=== PATIENT | female | born 1955 | race Caucasian/White ===

== ENCOUNTER 2016-06-11 10:50 | Emergency (ER) | payer OTHER ==
[~2016-06-11] VITALS: Ht 162.6 cm; Wt 60.0 kg
--- NOTE | 2016-06-11 10:53 | ED.REPORT ---
HPI-Extremity Problem Upper Date of Service Jun 11, 2016 ED Provider: Dr. Hernandez Pt is a 60 y/o female w/ a hx of osteoporosis, HTN, presenting to the ED with family c/o right upper arm pain secondary to ground level fall which occurred last night. The patient was at home, bent over, became dizzy, and fell onto her right shoulder onto a wood floor. She took some Ibuprofen last night and this morning with no relief. Pt denies numbness or weakness of the arm, syncope, PRESTON, focal numbness or weakness, any other site of injury, SOB, CP, nausea, vomiting , abdominal pain. She began taking 10 mg Lisinopril 2-3 weeks ago. This is the first time she has fallen like this. Nursing Notes Stated Complaint: RIGHT ARM INJURY Nursing Notes Reviewed: Yes Allergies: Coded Allergies: No Known Allergies (Verified , 06/11/16) Scheduled PRN oxyCODONE-Acetaminophen 10-325 mg (oxyCODONE-Acetaminophen 10-325 mg) 1 Each Tablet 1 TABLET PO Q4H PRN PRN For Pain General Time Seen by MD: 10:53 Chief Complaint Arm injury right Hx Obtained From: Patient Arrived By: Walk-in Onset Occurred: 9 - 12 hours ago Symptom Duration: Since onset Location: : Arm right Quality: Painful Severity: Current: Moderate Severity: Maximum: Severe Exacerbated by: Range of motion Recent Healthcare: Recent doctor visit Similar Sx Previous: No Past Medical History Past Medical History Osteoporosis Non-hodgkins lymphoma in remission since 2006 Hypothyroid Hypertension Past Surgical History Thyroidectomy Family History Noncontributory Smoking History Current Every Day Smoker Social History Other Social History: Good social support, Local resident Occupation Works at [employer] Ambulatory Status Independent Review of Systems Constitutional: Denies: Chills, Fever Musculoskeletal: Reports: Extremity pain, Extremity swelling Skin: Denies Diaphoresis, Denies Rash Neurologic: Reports: Dizziness, Denies: Change LOC, Confusion, Focal weakness, Headache, Numbness, Slurred speech, Syncope, Unable to speak, Vision change, Weakness Complete sys rev & neg: except as marked. Respiratory: Denies: Dyspnea on exertion, Non-productive cough, Shortness of breath Cardiovascular: Denies: Chest pain, Dyspnea on exertion GI: Denies: Abdominal pain, Diarrhea, Nausea, Vomiting Physical Exam Initial Vital Signs Vital Signs (First) Date Time Temp Pulse Resp B/P Pulse Ox O2 Delivery O2 Flow Rate FiO2 06/11/16 11:00 36.5 92 18 168/88 100 06/11/16 12:23 Room Air Initial VS: Reviewed Head / Eyes: Atraumatic, Normocephalic, PERRL ENT: Mucous membranes moist, Conjunctiva normal, No scleral icterus Neck: Supple, Non-tender, Full range of motion Respiratory: Breath sounds normal, Clear to auscultation, No respiratory distress Cardiovascular: Regular rate & rhythm, Heart sounds normal, Intact distal pulses Abdomen / GI: Soft, Non-tender, No guarding, No rebound, No distention Lower Extremities: Vascular intact, Neuro intact, No swelling, No tenderness Skin: Warm, Dry, No cyanosis Psychiatric: Mood/affect normal, Behavior normal, Normal thought content General/Constitutional: Awake, Alert, No acute distress, Cooperative, Not toxic appearing Appearance / Presentation: Positive: In pain, Uncomfortable Upper Extremity / MS: No snuffbox tenderness, Neurologic intact, Vascular intact, No compartment syndrome, No circumferential injury, No clubbing/cyanosis RUE: Bruising over the bicep. Significant swelling present. Tenderness about the mid shaft of the humerus LUE normal Neurologic: Oriented X3, Speech NL, No motor deficits, No sensory deficits, CN II - XII intact, Cerebellar NL, Memory NL Interpretation & Diagnostics Lab Results Interpretation Result Diagram: 06/11/16 1127 06/11/16 1127 Test 06/11/16 11:27 White Blood Count 8.8th/mm3 (3.8-10.1) Red Blood Count 3.33mil/mm3 (3.90-5.20) Hemoglobin 10.4g/dL (12.0-15.6) Hematocrit 29.4% (35.0-46.0) Mean Corpuscular Volume 88.3fL (81-100) Mean Corpuscular Hemoglobin 31.2pg (27.0-35.0) Mean Corpuscular Hemoglobin Concent 35.4% (32.0-37.0) Red Cell Distribution Width 11.5% (12.3-15.4) Platelet Count 310bil/L (150-400) Neutrophils (%) (Auto) 71.6% (40-74) Lymphocytes (%) (Auto) 20.0% (14-46) Monocytes (%) (Auto) 8.1% (4-12) Eosinophils (%) (Auto) 0.1% (0-5) Basophils (%) (Auto) 0.1% (0-3) Prothrombin Time 9.6sec (8.1-12.5) Prothromb Time International Ratio 0.90ratio Activated Partial Thromboplast Time 27.1sec (22.8-33.0) Sodium Level 123mEq/L (134-144) Potassium Level 4.5mEq/L (3.5-5.2) Chloride Level 85mEq/L (97-108) Carbon Dioxide Level 22mmol/L (18-29) Blood Urea Nitrogen 10mg/dL (6-24) Creatinine 0.59mg/dL (0.57-1.00) Estimat Glomerular Filtration Rate 150mL/min (>59) Glucose Level 134mg/dL (60-99) Calcium Level 7.9mg/dL (8.5-10.1) Magnesium Level 1.6mg/dL (1.6-2.6) Total Bilirubin 0.5mg/dL (0.0-1.2) Aspartate Amino Transf (AST/SGOT) 16U/L (0-50) Alanine Aminotransferase (ALT/SGPT) 9U/L (0-32) Alkaline Phosphatase 51U/L (25-150) Troponin T 0.010ug/L (0.0-0.011) Total Protein 7.9g/dL (6.4-8.4) Albumin 3.9g/dL (3.4-5.0) ECG Interpretation Time: 11:38 Interpreted by: ED physician Normal ECG Interpretation: Normal ECG w/ rate of... (76), Normal rate, Normal sinus rhythm, No acute ischemic changes, Normal QRS, Normal axis, Normal intervals, Adequate tracing X-Ray Chest Interpretation Chest Xray Interpretation: IMPRESSION: Acute disease is not seen in a supine portable chest. Dictated by: Lencho Padilla M.D. on 06/11/2016 at 11:33 Approved by: Lencho Padilla M.D. on 06/11/2016 at 11:33 View: Portable, 1 view Interpretation / Wet Read by: Interpret - Radiologist X-Ray Interpretation Xray Interpretation: IMPRESSION: Fracture of the neck of the right humerus with displacement of the shaft anteriorly the thickness of the shaft and medially half the thickness of the shaft. Dictated by: Lencho Padilla M.D. on 06/11/2016 at 11:31 Approved by: Lencho Padilla M.D. on 06/11/2016 at 11:32 Study Performed: 2 view X-Ray Ordered: Shoulder right Interpretation / Wet Read by: Interpret - Radiologist Xray Interpretation: IMPRESSION: No abnormality seen in the distal right humerus. Proximally there is a humeral neck fracture. Dictated by: Lencho Padilla M.D. on 06/11/2016 at 11:32 Approved by: Lencho Padilla M.D. on 06/11/2016 at 11:33 Study Performed: 2 views X-Ray Ordered: Humerus right Interpretation / Wet Read by: Interpret - Radiologist Re-Eval/Medical Decision Med Decision/Clinical Course 60-year-old female with a history of non-Hodgkin's lymphoma, hypothyroidism, tobacco dependence, osteoporosis and recently diagnosed hypertension presents with left arm pain and a humeral neck fracture noted after a fall last evening that was preceded by a dizzy episode. Patient notes she has been feeling somewhat weak and dizzy over the past several days. Interestingly she was started on lisinopril 10 mg daily 2 weeks ago by her PCP for her blood pressure and at that time her sodium was 139. Today it is 123. Her blood pressure is not low, her EKG is normal as well as her chest x-ray and her telemetry monitoring has been normal while in the ER. I do not suspect that her dizzy episodes are cardiac related. She is euvolemic on exam, I do not suspect dehydration. By history these episodes are not vertiginous. I believe that hyponatremia is the cause of her fall and dizziness. There are no signs of renal failure, multiple myeloma, hyperglycemia, or alcohol that could have caused this. Her thyroid was last checked 1 month ago and was normal. Although in my experience lisinopril is less likely to cause hyponatremia, it is the only thing that has changed in the past 2 weeks so I recommended the patient discontinue this medication and discuss a different blood pressure medication with her PCP at follow-up next week. I did recommend an overnight admission for treatment of her hyponatremia, and to make sure that the numbers improved by discontinuing lisinopril and her symptoms resolved. Patient was adamant that she felt fine and did not want to be admitted. Given that the likely cause was identified and corrected I was comfortable with her going home , with instructions to return if she worsens in any way. For the humeral neck fracture her pain was controlled with Dilaudid here and she is discharged with Percocet Rx. I notified Dr. Allan Bai with orthopedics about the fracture to help arrange a follow-up. Patient will call on Monday morning. She was placed in a sling and precautions given. There were no signs of neurologic or vascular injury on exam of the distal extremity. Patient understands and is in agreement with the plan Re-Evaluation/Progress #1: Time of Eval: 11:43 Patient Status: Moderate relief, Pain improved Re-Evaluation/Progress Note: Informed pt of imaging findings and likely necessary surgical intervention. Re-Evaluation/Progress #2: Time of Eval: 14:22 Re-Evaluation/Progress Note: Pt rechecked. Discussed admit vs discharge. She would like to be discharged. Informed pt of plan for treatment. Pt understands and agrees with plan for treatment. F/U instructions and RTER warnings given. All questions addressed. Consultation : Referral / Consult Name: Allan Bai MD Consulted With: Orthopedic Call Returned at: 11:30 Circuit Tester: Agrees with eval, Agrees with plan Note: Recommends outpatient treatment of the fracture Counseled Regarding: Diagnosis, Lab results, Need for follow-up, When/why to return to ED Discharge & Departure Impression: Primary Impression: Fracture of head of right humerus Encounter type: initial encounter Fracture type: closed Qualified Code: S42.201A - Unspecified fracture of upper end of right humerus, initial encounter for closed fracture Additional Impressions: Fall from ground level Dizziness Hyponatremia Adverse effects of medication Encounter type: initial encounter Qualified Code: T88.7XXA - Unspecified adverse effect of drug or medicament, initial encounter Anemia Anemia type: unspecified type Qualified Code: D64.9 - Anemia, unspecified Disposition: Home Discharge Condition All VS Reviewed: Yes Condition: Stable Patient Instructions: Arm Fracture in Adults (ED), Hyponatremia (ED) Additional Instructions: Your sodium is quite low at 123 today. This is likely causing your dizziness. Although lisinopril does not frequently cause this is the only thing that has recently changed so I recommend that you stop it until your follow up on Monday with your PCP The fall caused a right upper arm fracture. Keep the splint on until you are seen by the referred orthopedic surgeon, Dr. Bai. Call her office's number to schedule an appointment. You have been prescribed Percocet and I recommend that you take a stool softener with this medication. Return to the emergency department if you experience more falls, dizziness, lightheadedness, passing out, vomiting, chest pain, shortness of breath, or for other concerning symptoms. Referrals: Belkis Jasso (PCP) Allan Bai MD Attestation Portions of this note were transcribed by Gerson Bennett. I, Dr. Hernandez personally performed the history, physical exam and medical decision-making; I reviewed and confirmed the accuracy of the information in the transcribed note. Signed by Shea Echeverria, 06/11/16 - 2027 copies to: Belkis Jasso Gary R DO Jun 11, 2016 10:53 GERSON BENNETT Jun 11, 2016 11:01
[2016-06-11 11:00] VITALS: BP 168/88; PULSE 92; RESP 18; O2SAT 100
[2016-06-11] MEDS ORDERED: Ondansetron 2 mg/mL 2 mL Inj IVPUSH PRN (11:10)
--- NOTE | 2016-06-11 11:33 | DRSVH ---
PROCEDURE: X-RAY RIGHT SHOULDER, MINIMUM TWO VIEWS ([id number]) INDICATIONS: fall, r shoulder pain TECHNIQUE: 2 views of the shoulder were acquired. COMPARISON: None. FINDINGS: Bones: There is an acute fracture of the neck of the right humerus with displacement of the shaft med ially half the thickness of the shaft and anteriorly nearly the complete thickness of the shaft. The head remains in the glenoid fossa. Soft tissues: No suspicious soft tissue calcifications. IMPRESSION: Fracture of the neck of the right humerus with displacement of the shaft anteriorly the t hickness of the shaft and medially half the thickness of the shaft. Dictated by: Lencho Padilla M.D. on 06/11/2016 at 11:31 Approved by: Lencho Padilla M.D. on 06/11/2016 at 11:32
--- NOTE | 2016-06-11 11:34 | DRSVH ---
PROCEDURE: X-RAY RIGHT HUMERUS, MINIMUM TWO VIEWS ([id number]) INDICATIONS: fall, r arm pain TECHNIQUE: 2 views of the humerus were acquired. COMPARISON: None. FINDINGS: Bones: Fracture of the humeral neck is seen on the margin of one of the films and better seen on the shoulder x-rays. No fracture of the distal humerus is seen. No abnormality is seen in these oblique f ilms of the elbow. No suspicious bony lesions. Soft tissues: No suspicious soft tissue calcifications. IMPRESSION: No abnormality seen in the distal right humerus. Proximally there is a humeral neck fract ure. Dictated by: Lencho Padilla M.D. on 06/11/2016 at 11:32 Approved by: Lencho Padilla M.D. on 06/11/2016 at 11:33
--- NOTE | 2016-06-11 11:35 | DRSVH ---
PROCEDURE: X-RAY CHEST ONE VIEW, PORTABLE ([id number]) INDICATIONS: presyncope TECHNIQUE: One view of the chest was acquired. COMPARISON: None. FINDINGS: Surgical changes and devices: Surgical clips are seen in the region of the thyroid or trachea. Lungs and pleura: No pleural effusions or pneumothorax. Lungs are clear. Mediastinum: Mediastinal contours appear normal. Heart size is normal. Bones and chest wall: No suspicious bony lesions. Overlying soft tissues appear unremarkable. IMPRESSION: Acute disease is not seen in a supine portable chest. Dictated by: Lencho Padilla M.D. on 06/11/2016 at 11:33 Approved by: Lencho Padilla M.D. on 06/11/2016 at 11:33
[2016-06-11] MEDS: HYDROmorphone 1 mg/mL Inj IVPUSH PRN ×2 (11:40→12:22)
[2016-06-11 11:57] LABS: BASOPHILS % (AUTO) 0.1 % (0-3); EOSINOPHILS % (AUTO) 0.1 % (0-5); MONOCYTES % (AUTO) 8.1 % (4-12); Mean Corpuscular Hemoglobin 31.2 pg (27.0-35.0); Mean Corpuscular Volume 88.3 fL (81-100); NEUTROPHILS % (AUTO) 71.6 % (40-74); Platelet Count 310 bil/L (150-400)
[2016-06-11 12:23] VITALS: BP 128/74; PULSE 70; RESP 22
[2016-06-11 12:29] LABS: INR 0.9 ratio
[2016-06-11 12:34] LABS: TROPONIN T 0.01 ug/L (0.0-0.011)
[2016-06-11 12:46] LABS: Magnesium 1.6 mg/dL (1.6-2.6)
[2016-06-11] MEDS ORDERED: OXYC-466 PO (14:40)
[2016-06-11 15:07] VITALS: BP 133/50; PULSE 67; RESP 18; O2SAT 99
[2016-06-11] MEDS ORDERED: HYDROmorphone 1 mg/mL Inj IVPUSH ONE (15:10)
[2016-06-11 15:28] VITALS: BP 133/50; PULSE 67; RESP 18; O2SAT 99
== END 2016-06-11 15:33 | disposition home or self-care (01) ==
LOC: SED 10:50
DX: S42.291A Other displaced fracture of upper end of right humerus, initial encounter for closed fracture (principal); T46.4X5A Adverse effect of angiotensin-converting-enzyme inhibitors, initial encounter; R42 Dizziness and giddiness; E87.1 Hypo-osmolality and hyponatremia; D64.9 Anemia, unspecified; I10 Essential (primary) hypertension; E03.9 Hypothyroidism, unspecified; F17.200 Nicotine dependence, unspecified, uncomplicated; Z85.71 Personal history of Hodgkin lymphoma; W18.39XA Other fall on same level, initial encounter; Y92.009 Unspecified place in unspecified non-institutional (private) residence as the place of occurrence of the external cause; Y93.89 Activity, other specified; Y99.8 Other external cause status
CPT/HCPCS: 36415; 71010; 73030; 73060; 80053; 83735; 84484; 85025; 85610; 85730; 93005; 96374; 96375; 96376; 99285; J1170; J2405